=== PATIENT | male | born 1990 | race African-American/Black ===

== ENCOUNTER → 2017-08-28 | Emergency (ER) | payer SELFPAY ==
[~2017-08-28] VITALS: Ht 167.6 cm; Wt 59.0 kg
[~2017-08-28] MED LIST: UNOBMED
[2017-08-28 11:56] VITALS: BP 132/78
--- NOTE | 2017-08-29 07:40 | Emergency Room Report ---
History of Present Illness General Chief Complaint: Overdose Source: Patient Nursing Documentation-[facility] Past Medical History: No Stated History Physical Exam Vital Signs Date Time Temp Pulse Resp B/P (MAP) Pulse Ox O2 Delivery O2 Flow Rate FiO2 08/28/17 11:56 98.0 128 18 132/78 100 Room Air 98.1 Medical Decision Making Diagnostic Impression: Primary Impression: Drug overdose ER Course patient left without being seen Last Vital Signs Date Time Temp Pulse Resp B/P (MAP) Pulse Ox O2 Delivery O2 Flow Rate FiO2 08/28/17 11:56 98.0 128 18 132/78 100 Room Air 98.1 Status: unchanged Disposition: LEFT W/OUT BEING SEEN Condition: Unknown Referrals: NOT CHOSEN IPA/,REFERRING (PCP) Gui Johnson MD Aug 29, 2017 07:40
== END | disposition left against medical advice (07) ==
LOC: EDBD 12:14 → EMR 12:25
DX: T50.901A Poisoning by unspecified drugs, medicaments and biological substances, accidental (unintentional), initial encounter (principal); Y92.9 Unspecified place or not applicable; Z53.21 Procedure and treatment not carried out due to patient leaving prior to being seen by health care provider
CPT/HCPCS: 99283